=== PATIENT | female | born 1955 | race Caucasian/White ===

== ENCOUNTER 2021-07-25 09:20 | Inpatient (IN) ==
[2021-07-25 10:07] LABS: Bilirubin,Urine Negative (Negative); Blood,Urine Negative (Negative); Clarity,Urine Clear (Clear); Color,Urine Yellow (Yellow); Glucose,Urine (UA) Normal (Normal); Ketones,Urine Negative (Negative); Leukocyte Esterase,Urine Negative (Negative); Nitrite,Urine Negative (Negative); PH,Urine 6.5 pH Units (5.0-8.0); Protein,Urine Negative (Neg-Trace); Urobilinogen,Urine Normal (Normal)
[2021-07-25 10:11] LABS: Basophils # 0.1 K/mcL (0.0-0.2); Basophils % 1.1 %; Eosinophils # 0.2 K/mcL (0.0-0.6); Eosinophils % 2.7 %; Hematocrit 28.4 % (35.3-44.9); Hemoglobin 8.8 g/dL (11.5-15.4); Immature Granulocytes % 0.5 % (0-4); Lymphocytes # 0.4 K/mcL (0.6-4.6); Lymphocytes % 6.4 %; Mean Corpuscular Hemoglobin 29.8 pg (28.0-33.3); Mean Corpuscular Volume 96.3 fL (83.0-100.0); Mean Platelet Volume 9.8 fL (9.4-12.4); Monocytes # 0.6 K/mcL (0.0-1.3); Monocytes % 11.4 %; Neutrophils # 4.4 K/mcL (1.6-8.9); Nucleated Red Blood Cells 0.4 /100 WBC (0); Platelet Count 183 K/mcL (140-400); Red Blood Count 2.95 M/mcL (3.82-4.97); Red Cell Distribution Width 14.4 % (11.5-14.5); Segmented Neutrophils % 77.9 %; White Blood Count 5.6 K/mcL (4.3-11.1)
[2021-07-25 10:33] LABS: Albumin 3.8 g/dL (3.5-5.7); Bilirubin,Direct 0.2 mg/dL (0.0-0.2); Bilirubin,Total 1.2 mg/dL (0.3-1.0); Calcium 7.1 mg/dL (8.6-10.3); Globulin 1.9 g/dL (2.4-3.5); Magnesium 0.6 mg/dL (1.6-2.6); Phosphorous 4.4 mg/dL (2.7-4.5); Potassium 3.7 mEq/L (3.5-5.1); Total Protein 5.7 g/dL (6.4-8.9)
[2021-07-25] MEDS: Ringers Solution, Lactated 1,000 ML IVC SCH (16:43)
[2021-07-25] MEDS ORDERED: Diphenoxylate/Atropine 1 TAB TABLET PO PRN (16:43)
[2021-07-25] MEDS ORDERED: Cholestyramine 4 GM POWD.PACK PO SCH (16:45)
[2021-07-25] MEDS ORDERED: Cyanocobalamin (B-12) 1,000 MCG/ML VIAL SQ SCH ×2 (16:45→21:30)
[2021-07-25 17:19] LABS: Hematocrit 27.2 % (35.3-44.9); Hemoglobin 8.6 g/dL (11.5-15.4)
[2021-07-25] MEDS: Cholestyramine 4 GM POWD.PACK PO SCH (22:12)
[2021-07-25] MEDS: Magnesium Oxide 400 MG TABLET PO SCH (22:12)
[2021-07-25 22:46] LABS: Hematocrit 27.7 % (35.3-44.9); Hemoglobin 8.8 g/dL (11.5-15.4)
[2021-07-26 04:43] LABS: Basophils % 0.4 %; Eosinophils # 0.1 K/mcL (0.0-0.6); Eosinophils % 0.9 %; Hemoglobin 8.8 g/dL (11.5-15.4); Immature Granulocytes % 0.4 % (0-4); Lymphocytes # 0.5 K/mcL (0.6-4.6); Lymphocytes % 8.4 %; Mean Corpuscular HGB Conc 31.4 g/dL (31.6-35.5); Mean Corpuscular Hemoglobin 29.9 pg (28.0-33.3); Mean Corpuscular Volume 95.2 fL (83.0-100.0); Mean Platelet Volume 9.7 fL (9.4-12.4); Monocytes # 0.8 K/mcL (0.0-1.3); Monocytes % 13.9 %; Neutrophils # 4.3 K/mcL (1.6-8.9); Platelet Count 178 K/mcL (140-400); Red Blood Count 2.94 M/mcL (3.82-4.97); Red Cell Distribution Width 14.1 % (11.5-14.5); White Blood Count 5.6 K/mcL (4.3-11.1)
[2021-07-26 05:24] LABS: BUN/Creatinine Ratio 22 (6-26); Blood Urea Nitrogen 23 mg/dL (8-23); Calcium 7.7 mg/dL (8.6-10.3); Carbon Dioxide 21 mEq/L (23-29); Chloride 112 mEq/L (98-107); Glucose 97 mg/dL (70-105); Osmolality,Calculated 294 (280-300); Potassium 3.4 mEq/L (3.5-5.1); Sodium 140 mEq/L (136-145); eGFR For African Americans > 60 (> 60); eGFR For Non-African Americans 52 (> 60)
[2021-07-26] MEDS: Ringers Solution, Lactated 1,000 ML IVC SCH (05:43)
[2021-07-26] MEDS: Benzonatate 100 MG CAPSULE PO PRN ×2 (05:43→17:29)
[2021-07-26] MEDS: *HR* Enoxaparin 40 MG/0.4 ML SYRINGE SQ SCH (05:43)
[2021-07-26] MEDS ORDERED: Potassium Chloride Elixir 20 MEQ/15 ML UDC PO ONE (09:35)
[2021-07-26] MEDS: BuPROPion XL (24 HR) 150 MG TABLET PO SCH (10:00)
[2021-07-26] MEDS: Cholecalciferol (D-3) 1,000 UNIT (25MCG) TABLET PO SCH (10:01)
[2021-07-26] MEDS: Magnesium Oxide 400 MG TABLET PO SCH ×2 (10:01→21:00)
[2021-07-26] MEDS: Venlafaxine XR (24 HR) 75 MG CAP.ER.24H PO SCH (10:01)
[2021-07-26] MEDS: ARIPiprazole 5 MG TABLET PO SCH (10:02)
[2021-07-26] MEDS: Cholestyramine 4 GM POWD.PACK PO SCH ×2 (10:14→17:30)
[2021-07-26] MEDS: Diclofenac Sodium (DR) 50 MG TABLET.DR PO SCH ×2 (11:08→21:00)
[2021-07-26] MEDS: Venlafaxine XR (24 HR) 150 MG CAP.ER.24H PO SCH (11:09)
[2021-07-27] MEDS: Benzonatate 100 MG CAPSULE PO PRN (02:38)
[2021-07-27 06:44] VITALS: BP 132/75; PULSE 69; TEMP 97.9
[2021-07-27] MEDS: *HR* Enoxaparin 40 MG/0.4 ML SYRINGE SQ SCH (06:48)
[2021-07-27] MEDS: Cholestyramine 4 GM POWD.PACK PO SCH (06:49)
[2021-07-27 09:10] VITALS: RESP 18; O2SAT 94
[2021-07-27 09:20] LABS: Basophils % 0.5 %; Eosinophils % 0.3 %; Hematocrit 31.2 % (35.3-44.9); Hemoglobin 9.7 g/dL (11.5-15.4); Immature Granulocytes % 0.5 % (0-4); Lymphocytes % 21.2 %; Mean Corpuscular HGB Conc 31.1 g/dL (31.6-35.5); Mean Corpuscular Volume 93.4 fL (83.0-100.0); Mean Platelet Volume 9.7 fL (9.4-12.4); Monocytes # 0.3 K/mcL (0.0-1.3); Monocytes % 8.3 %; Platelet Count 184 K/mcL (140-400); Red Blood Count 3.34 M/mcL (3.82-4.97); Segmented Neutrophils % 69.2 %
[2021-07-27 09:21] LABS: BUN/Creatinine Ratio 16 (6-26); Blood Urea Nitrogen 16 mg/dL (8-23); Calcium 8.7 mg/dL (8.6-10.3); Carbon Dioxide 20 mEq/L (23-29); Chloride 111 mEq/L (98-107); Glucose 148 mg/dL (70-105); Magnesium 1.8 mg/dL (1.6-2.6); Osmolality,Calculated 292 (280-300); Potassium 3.4 mEq/L (3.5-5.1); Sodium 139 mEq/L (136-145); eGFR For African Americans > 60 (> 60); eGFR For Non-African Americans 55 (> 60)
[2021-07-27 09:23] LABS: Lymphocytes # 0.9 K/mcL (0.6-4.6); Neutrophils # 2.8 K/mcL (1.6-8.9)
[2021-07-27] MEDS ORDERED: Potassium Chloride Elixir 20 MEQ/15 ML UDC PO ONE (09:32)
[2021-07-27] MEDS: Magnesium Oxide 400 MG TABLET PO SCH (09:50)
[2021-07-27] MEDS: Venlafaxine XR (24 HR) 150 MG CAP.ER.24H PO SCH (09:50)
[2021-07-27] MEDS: Diclofenac Sodium (DR) 50 MG TABLET.DR PO SCH (09:50)
[2021-07-27] MEDS: ARIPiprazole 5 MG TABLET PO SCH (09:51)
[2021-07-27] MEDS: Venlafaxine XR (24 HR) 75 MG CAP.ER.24H PO SCH (09:51)
[2021-07-27] MEDS: Cholecalciferol (D-3) 1,000 UNIT (25MCG) TABLET PO SCH (09:51)
[2021-07-27] MEDS: BuPROPion XL (24 HR) 150 MG TABLET PO SCH (09:52)
== END 2021-07-27 12:30 | disposition home or self-care (01) | DRG 391 ==
LOC: INPPIK 09:20 → EMEROOPIK 09:20 → INPPIK 20:16
PROVIDERS: ADMIT Internal Medicine; ATTEND Internal Medicine